=== PATIENT | male | born 1990 | race Caucasian/White ===

== ENCOUNTER 2018-01-08 00:30 | Emergency (ER) | payer OTHER ==
[~2018-01-08] VITALS: Ht 177.8 cm; Wt 79.4 kg
[2018-01-08 00:30] VITALS: BP_SYST 123
[2018-01-08 00:57] VITALS: BP_SYST 125
== END 2018-01-08 00:57 ==
LOC: SED 00:30
DX: S00.81XA Abrasion of other part of head, initial encounter (principal); F10.129 Alcohol abuse with intoxication, unspecified; V89.2XXA Person injured in unspecified motor-vehicle accident, traffic, initial encounter; Y93.89 Activity, other specified; Y92.410 Unspecified street and highway as the place of occurrence of the external cause; Y99.8 Other external cause status
CPT/HCPCS: 99283